=== PATIENT | male | born 1980 | race Hispanic/Latino ===

== ENCOUNTER 2025-01-16 17:14 | Emergency (ER) | payer OTHER, SELFPAY ==
[2025-01-16] MEDS ORDERED: Lidocaine 1% PF 5 ML VIAL ONE (18:09)
[2025-01-16] MEDS ORDERED: Boostrix 0.5 ML (Tdap) VIAL (>/=7 yrs of age) ONE (18:09)
[2025-01-16] MEDS ORDERED: Bacitracin 1 PK ONE (18:09)
[2025-01-16] MEDS ORDERED: Ketorolac Tromethamine 30 MG (1 mL) VIAL ONE (18:10)
[2025-01-16] MEDS ORDERED: CEFAZOLIN 1 GM VIAL ONE (18:34)
== END 2025-01-16 20:01 | disposition home or self-care (01) ==
LOC: ERS 17:14
DX: S62.637A Displaced fracture of distal phalanx of left little finger, initial encounter for closed fracture (principal); I10 Essential (primary) hypertension; E11.9 Type 2 diabetes mellitus without complications; E78.5 Hyperlipidemia, unspecified; Z23 Encounter for immunization; Z79.899 Other long term (current) drug therapy; Z79.84 Long term (current) use of oral hypoglycemic drugs; W23.1XXA Caught, crushed, jammed, or pinched between stationary objects, initial encounter; Y93.89 Activity, other specified; Y92.63 Factory as the place of occurrence of the external cause; Y99.0 Civilian activity done for income or pay
CPT/HCPCS: 26600; 90471; 90715; 96372; 96374; J0690; J1885